=== PATIENT | female | born 1945 | race Caucasian/White ===

== ENCOUNTER → 2017-01-08 | Outpatient (CLI) | payer MEDICARE, OTHER ==
[~2017-01-08] VITALS: Ht 152.4 cm; Wt 83.0 kg
[~2017-01-08] MED LIST: ASPI81TA85 PO; ENAL5TAB PO; EYECAP PO; FLAX1000 PO; LIDOCAINE 2% INJ 100 MG/5 ML SDV (FOR ANES.) As Ordered ONE; NS 1,000 ML IV ONE; OMEG100011 PO; PRAV10TA4 PO; PROPOFOL 500 MG/50 ML VIAL As Ordered ONE; PROT1TAB2 PO; TRAZ50TA11 PO; TYLE500T78 PO
--- NOTE | 2017-01-08 10:06 | ROOR ---
Patient Name: Leela Sheets Procedure Date: 01/08/2017 9:54 AM Date of : 1945 Age: 72 Room: [facility] Gender: Female Note Status: Finalized Procedure: Upper GI endoscopy Indications: Heartburn, Abnormal CT of the GI tract Providers: Evelio SERRANO MD Referring MD: CAIO NAVARRETE MD Requesting Provider: Medicines: Monitored Anesthesia Care Complications: No immediate complications. Procedure: Pre-Anesthesia Assessment: - The heart rate, respiratory rate, oxygen saturations, blood pressure, adequacy of pulmonary ventilation, and response to care were monitored throughout the procedure. The Endoscope was introduced through the mouth, and advanced to the second part of duodenum. The upper GI endoscopy was accomplished without difficulty. The patient tolerated the procedure well. Findings: The esophagus was normal. The stomach was normal. The examined duodenum was normal. Impression: - Normal esophagus. - Normal stomach. - Normal examined duodenum. - No specimens collected. Recommendation: - Continue present medications. - Observe patient's clinical course. - Follow an antireflux regimen. Evelio Serrano MD Evelio SERRANO MD 01/08/2017 10:06:12 AM This report has been signed electronically. Number of Addenda: 0 Note Initiated On: 01/08/2017 9:54 AM Estimated Blood Loss: Estimated blood loss: none.
[2017-01-08 10:23] VITALS: BP 134/90
== END | disposition home or self-care (01) ==
LOC: M OPP 07:57
PROVIDERS: ATTEND Internal Medicine Gastroenterology
DX: R93.3 Abnormal findings on diagnostic imaging of other parts of digestive tract (principal); R12 Heartburn; K25.9 Gastric ulcer, unspecified as acute or chronic, without hemorrhage or perforation; I10 Essential (primary) hypertension; E78.5 Hyperlipidemia, unspecified; K21.9 Gastro-esophageal reflux disease without esophagitis; M35.3 Polymyalgia rheumatica; M06.9 Rheumatoid arthritis, unspecified; Z79.82 Long term (current) use of aspirin; Z79.899 Other long term (current) drug therapy; Z80.0 Family history of malignant neoplasm of digestive organs